=== PATIENT | female | born 1950 | race Caucasian/White ===

== ENCOUNTER → 2020-07-05 | Outpatient (CLI) | payer MEDICARE, MEDICAID | END | disposition home or self-care (01) | LOC: CVU 13:22 | PROVIDERS: ATTEND Internal Medicine Clinical Cardiac Electrophysiology | DX: I35.8 Other nonrheumatic aortic valve disorders (principal); I10 Essential (primary) hypertension; R94.31 Abnormal electrocardiogram [ECG] [EKG]; E11.40 Type 2 diabetes mellitus with diabetic neuropathy, unspecified; Z72.0 Tobacco use | CPT/HCPCS: 93306; 93922 ==

== ENCOUNTER → 2020-07-07 | Outpatient (CLI) | payer MEDICARE, MEDICAID | END | disposition home or self-care (01) | LOC: CVU 09:50 | PROVIDERS: ATTEND Internal Medicine Clinical Cardiac Electrophysiology | DX: R94.31 Abnormal electrocardiogram [ECG] [EKG] (principal); I10 Essential (primary) hypertension; E11.40 Type 2 diabetes mellitus with diabetic neuropathy, unspecified; E78.5 Hyperlipidemia, unspecified; Z72.0 Tobacco use | CPT/HCPCS: 93880; 93978 ==

== ENCOUNTER → 2020-07-27 | Outpatient (CLI) | payer MEDICARE, MEDICAID ==
[~2020-07-27] MED LIST: REGADENOSON 0.4 MG/5 ML SYRINGE ONE
== END | disposition home or self-care (01) ==
LOC: CFH 11:51
PROVIDERS: ATTEND Internal Medicine Clinical Cardiac Electrophysiology
DX: R94.31 Abnormal electrocardiogram [ECG] [EKG] (principal); E11.40 Type 2 diabetes mellitus with diabetic neuropathy, unspecified; I10 Essential (primary) hypertension; I25.89 Other forms of chronic ischemic heart disease; Z72.0 Tobacco use
CPT/HCPCS: 78452; 93017; A9502; J2785

== ENCOUNTER 2021-03-30 19:14 | Inpatient (IN) | payer MEDICAID, MEDICARE ==
[~2021-03-30] VITALS: Ht 160 cm; Wt 82.1 kg
[2021-03-30 19:49] LABS: BASOPHILS % (AUTO) 1 % (0-1); EOSINOPHILS % (AUTO) 2 % (1-7); LYMPHOCYTES % (AUTO) 26 % (22-44); MEAN CORPUSCULAR HEMOGLOBIN 29.7 pg (27.0-34.8); MEAN CORPUSCULAR HGB CONC 32.6 g/dL (32.4-35.8); MEAN PLATELET VOLUME 9.3 fL (7.4-10.4); MONOCYTES % (AUTO) 8 % (2-9); NEUTROPHILS % (AUTO) 63 % (42-75); PLATELET COUNT 206 x10^3/uL (130-400); RED BLOOD COUNT 4.94 x10^6/uL (3.82-5.3); RED CELL DISTRIBUTION WIDTH 16.2 % (9.6-15.2)
[2021-03-30 20:00] LABS: ALBUMIN 3.4 g/dL (3.4-5.0); ANION GAP 6 mmol/L (5-15); CALCIUM 8.9 mg/dL (8.5-10.1); CHLORIDE 111 mmol/L (98-107)
[2021-03-30 20:04] LABS: ALANINE AMINOTRANSFERASE 30 U/L (12-78); ALKALINE PHOSPHATASE 139 U/L (45-117); BILIRUBIN,TOTAL 0.4 mg/dL (0.2-1.0); CREATININE 1.59 mg/dL (0.55-1.02); TOTAL PROTEIN 7.3 g/dL (6.4-8.2)
--- NOTE | 2021-03-30 20:55 | NUR ---
pt states she was at her pcp today, after she left, she realized she had blurry vision in the right eye "c blue lights" pt states she took her meds 2x yesterday so she didnt take any today.
--- NOTE | 2021-03-30 21:50 | NUR ---
pt moved from optho room to room c a bed. aware of possible admission. call light inreach. will ctm.
--- NOTE | 2021-03-30 22:32 | NUR ---
ADMITTING AT BS.
[2021-03-30 22:51] LABS: HCT (SEDRATE) 44.9 % (34.6-47.8)
[2021-03-30] MEDS ORDERED: OXYcodone IR 5MG TABLET PO PRN (23:00)
[2021-03-30] MEDS ORDERED: LABETALOL 5MG/ML, 20ML IVPush PRN (23:00)
[2021-03-30] MEDS ORDERED: MELATONIN 5 MG TABLET PO PRN (23:00)
[2021-03-30] MEDS ORDERED: ENOXAPARIN 30 MG/0.3 ML SQ SCH (23:00)
[2021-03-30] MEDS ORDERED: HYDROmorphone 2 MG/ML, 1ML IVPush PRN (23:00)
[2021-03-30] MEDS ORDERED: POLYETHYLENE GLYCOL 17 GM PACKET PO PRN (23:00)
[2021-03-30] MEDS ORDERED: ONDANSETRON 2MG/ML, 2ML IVPush PRN (23:00)
[2021-03-30] MEDS ORDERED: ACETAMINOPHEN 325 MG TABLET PO PRN (23:00)
[2021-03-30 23:07] VITALS: BP 153/90
[2021-03-31] MEDS ORDERED: GLUCAGON 1 MG IM PRN
[2021-03-31] MEDS ORDERED: DEXTROSE 4 GM TAB.CHEW PO PRN
[2021-03-31] MEDS ORDERED: DEXTROSE 50%, 50ML SYRINGE IVPush PRN
[2021-03-31 00:13] VITALS: BP 156/86
[2021-03-31] MEDS ORDERED: TEMAZEPAM 15 MG CAPSULE PO PRN (00:30)
[2021-03-31 05:03] LABS: BASOPHILS % (AUTO) 1 % (0-1); EOSINOPHILS % (AUTO) 3 % (1-7); LYMPHOCYTES % (AUTO) 30 % (22-44); MEAN CORPUSCULAR HEMOGLOBIN 30.3 pg (27.0-34.8); MEAN CORPUSCULAR HGB CONC 33.7 g/dL (32.4-35.8); MEAN PLATELET VOLUME 9.6 fL (7.4-10.4); MONOCYTES % (AUTO) 8 % (2-9); NEUTROPHILS % (AUTO) 59 % (42-75); PLATELET COUNT 179 x10^3/uL (130-400); RED BLOOD COUNT 4.76 x10^6/uL (3.82-5.3); RED CELL DISTRIBUTION WIDTH 15.9 % (9.6-15.2)
[2021-03-31 05:12] LABS: ANION GAP 6 mmol/L (5-15); CALCIUM 8.7 mg/dL (8.5-10.1); CHLORIDE 112 mmol/L (98-107)
[2021-03-31 05:14] LABS: CHOL/HDL RATIO 2.7; CHOLESTEROL, TOTAL 116 mg/dL (140-239); CREATININE 1.24 mg/dL (0.55-1.02); HDL CHOL % 37 % (28-40); HDL CHOLESTEROL (DIRECT) 43 mg/dL (40-60); LDL CHOLESTEROL,CALCULATED 35 mg/dL (54-169); LDL/HDL RATIO 0.8 (0.5-3.0); TRIGLYCERIDES 192 mg/dL (50-200); VLDL CHOLESTEROL 38 mg/dL (0-25)
[2021-03-31 06:50] VITALS: BP 146/77
[2021-03-31] MEDS: INSULIN LISPRO 100 UNITS/ML, PEN SQ-INSULIN SCH ×3 (07:00→11:00)
[2021-03-31] MEDS: SODIUM CHLORIDE FLUSH 10ML SYR IVF SCH ×2 (09:00)
[2021-03-31] MEDS ORDERED: LORazepam 2 MG/ML, 1ML IVPush ONE (11:00)
[2021-03-31 12:17] LABS: AMPHETAMINE SCREEN, URINE Negative (Negative); BARBITURATE SCREEN, URINE Negative (Negative); BENZODIAZEPINE SCREEN, URINE Negative (Negative); CANNABINOID SCREEN, URINE Negative (Negative); COCAINE SCREEN, URINE Negative (Negative); METHADONE SCREEN, URINE Negative (Negative); OPIATE SCREEN, URINE Negative (Negative)
[2021-03-31] MEDS ORDERED: ENOXAPARIN 40 MG/0.4 ML SQ SCH (23:00)
== END 2021-03-31 14:00 | disposition left against medical advice (07) | DRG 82 ==
LOC: ED 21:40 → EDIP 22:57 → 4WST 23:41
PROVIDERS: ADMIT Internal Medicine; ATTEND Internal Medicine
DX: H54.61 Unqualified visual loss, right eye, normal vision left eye (principal); E11.40 Type 2 diabetes mellitus with diabetic neuropathy, unspecified; B19.10 Unspecified viral hepatitis B without hepatic coma; B02.9 Zoster without complications; I10 Essential (primary) hypertension; E11.65 Type 2 diabetes mellitus with hyperglycemia; F17.200 Nicotine dependence, unspecified, uncomplicated; F10.10 Alcohol abuse, uncomplicated; E78.00 Pure hypercholesterolemia, unspecified; F31.9 Bipolar disorder, unspecified; F43.10 Post-traumatic stress disorder, unspecified; M19.90 Unspecified osteoarthritis, unspecified site; Y90.9 Presence of alcohol in blood, level not specified; E66.01 Morbid (severe) obesity due to excess calories; J44.9 Chronic obstructive pulmonary disease, unspecified; F15.90 Other stimulant use, unspecified, uncomplicated; Z86.73 Personal history of transient ischemic attack (TIA), and cerebral infarction without residual deficits; Z68.32 Body mass index [BMI] 32.0-32.9, adult; Z87.01 Personal history of pneumonia (recurrent)
CPT/HCPCS: 36415; 70450; 80048; 80053; 80061; 80307; 82962; 85025; 85651; 86140; 96372; 99285; G0378; J1650; J1815